=== PATIENT | male | born 1970 | race Caucasian/White ===

== ENCOUNTER 2020-05-23 11:53 | Day surgery (SDC) | payer BC, OTHER ==
[2020-05-18 09:31] LABS: BASOPHILS % (AUTO) 0.9 % (0-1); EOSINOPHILS # (AUTO) 0.2 X10'3 (0-0.9); EOSINOPHILS % (AUTO) 4.5 % (0-6); LYMPHOCYTES # (AUTO) 1.5 X10'3 (1.1-4.8); LYMPHOCYTES % (AUTO) 34.4 % (21-51); MEAN CORPUSCULAR HEMOGLOBIN 30.4 PG (27.0-31.0); MEAN CORPUSCULAR HGB CONC 33.6 g/dL (33.0-36.5); MEAN CORPUSCULAR VOLUME 90.4 FL (78-98); MEAN PLATELET VOLUME 8.2 FL (7.4-10.4); MONOCYTES # (AUTO) 0.4 X10'3 (0-0.9); MONOCYTES % (AUTO) 8.8 % (2-12); NEUTROPHILS # (AUTO) 2.2 X10'3 (1.8-7.7); NEUTROPHILS % (AUTO) 51.4 % (42-75); PRE OP HEMATOCRIT 41.3 % (42.0-52.0); PRE OP HEMOGLOBIN 13.9 g/dL (14.0-17.9); PRE OP PLATELET COUNT 226 X10'3 (140-440); RED BLOOD COUNT 4.57 X10'6 (4.70-6.10)
[2020-05-18 09:43] LABS: ALBUMIN/GLOBULIN RATIO 1.2 (1.1-1.5); ALKALINE PHOSPHATASE 57 IU/L (46-116); BLOOD UREA NITROGEN 18 MG/DL (7-18); BUN/CREATININE RATIO 17.3 (5.4-32.0); CALCIUM 9.2 MG/DL (8.5-10.1); CHLORIDE 107 MMOL/L (99-107); CREATININE 1.04 MG/DL (0.60-1.10); PRE OP ALT 35 U/L (30-65); PRE OP ANION GAP 7 (8-16); PRE OP AST 36 U/L (10-37); PRE OP BILIRUB, TOTAL 0.5 MG/DL (0.0-1.0); PRE OP GLUCOSE 109 MG/DL (70-104); PRE OP POTASSIUM 4.3 MMOL/L (3.4-5.1); PRE OP SODIUM 144 MMOL/L (135-145); TOTAL CARBON DIOXIDE 29.6 MMOL/L (24-32); TOTAL PROTEIN 7.4 G/DL (6.4-8.2); eGFR 75 ML/MIN
[2020-05-23] VITALS (18 sets, daily range): BP systolic 114–151; BP diastolic 61–89
[~2020-05-23] VITALS: Ht 182.9 cm; Wt 104.3 kg
[~2020-05-23 11:53] MED LIST: NO HOME MEDS; albuterol 2.5 MG/3 ML nebule NEB ONE; famotidine 20mg tablet PO ONE; ringers solution, lacted 1,000 ML IV SCH
[2020-05-23] MEDS ORDERED: vancomycin 1,500 MG in NS 300ml IV soln IV ONE (12:20)
[2020-05-23] MEDS ORDERED: ceFAZolin 2gm in dextrose, iso 50 ML IV ONE (12:20)
[2020-05-23] MEDS ORDERED: ROPIVAcaine 0.5% (5mg/ml) 30ml vial ONE (14:51)
[2020-05-23] MEDS ORDERED: ketorolac trometh. 30mg/ml inj. ONE (14:51)
[2020-05-23] MEDS ORDERED: fentaNYL/PF 50MCG/1 ML 2ML syringe ONE (15:08)
[2020-05-23] MEDS ORDERED: MIDAZolam 5mg/5ml vial ONE (15:09)
[2020-05-23] MEDS ORDERED: sevoflurane 250ml liquid IH ONE (15:12)
[2020-05-23] MEDS ORDERED: propofol inj 20 ML IV ONE (15:12)
[2020-05-23] MEDS ORDERED: tranexamic acid 1gm/0.7% sal. 100 ML IV ONE ×3 (15:15→20:35)
[2020-05-23] MEDS ORDERED: morphine 2 MG/ML inj. syringe IV PRN (16:00)
[2020-05-23] MEDS ORDERED: ROPIVAcaine 0.2% (10 MG/5 ML) BOLUS INJECTION INTERSCALE PRN (16:00)
[2020-05-23] MEDS ORDERED: proCHLORperazine 10 MG/2 ml inj IV PRN (16:00)
[2020-05-23] MEDS ORDERED: ROPIVAcaine 0.2%/PF PUMP/bolus 550 ML INTERSCALE SCH (16:00)
[2020-05-23] MEDS ORDERED: ondansetron/PF 4mg/2ml inj IV PRN ×3 (16:00→17:35)
[2020-05-23] MEDS ORDERED: meperidine/PF 25mg/ml syringe IV PRN ×2 (16:00)
[2020-05-23] MEDS ORDERED: ringers solution, lacted 1,000 ML IV SCH (16:00)
[2020-05-23] MEDS ORDERED: morphine 4 MG/ML inj SYRINge IV PRN (16:00)
[2020-05-23] MEDS ORDERED: bisacodyl 10mg suppository rectal RC PRN ×2 (17:35)
[2020-05-23] MEDS ORDERED: potassium cl 20mEq in 1/2 NS 1,000 ML IV SCH (17:35)
[2020-05-23] MEDS ORDERED: HYDROmorphone inj. 0.5 MG/0.5 ML DISP.SYRIN IV PRN ×2 (17:35)
[2020-05-23] MEDS ORDERED: magnesium hydroxide 30ml (MOM) UD suspension PO PRN ×2 (17:35)
[2020-05-23] MEDS ORDERED: oxyCODONE IR 5mg (immed. release) tablet PO PRN ×4 (17:35)
[2020-05-23] MEDS ORDERED: HYDROmorphone 1 mg/ml syringe IV PRN ×2 (17:35)
[2020-05-23] MEDS ORDERED: acetaminophen 325mg tablet PO PRN ×2 (17:35)
[2020-05-23] MEDS ORDERED: tranexamic acid inj. 0 MG in normal saline 100ml IV soln 100 ML IV ONE (17:35)
[2020-05-23] MEDS ORDERED: diphenhydrAMINE 25mg capsule PO PRN ×4 (17:35)
--- NOTE | 2020-05-23 17:54 | NUR ---
Received from OR via hospital bed, accompanied by Anesthesiologist Belkys and report given by Anesthesiolgist. Face mask at 10L. Dressing to left shoulder with splint and powder pack. PIV x2 to right AC and right hand. Denies pain. Spoke with , per pt request. She states patient chews constantly. SCD's present. dressing CDI. Addendum: 05/23/20 at 1820 by Amy Dougherty RN Amended: Links added.
[2020-05-23] MEDS: meperidine/PF 25mg/ml syringe IV PRN ×2 (18:25→18:46)
--- NOTE | 2020-05-23 19:14 | NUR ---
Patient transferred to room 346B. Report given August. Belongings sent with patient. Left arm in sling and immobilizer CDI. OnQ attached. Tingling left pointer and thumb, good pallor, cap refill less than 2 seconds, good radial pulse. LR at 100ml/hr.
[2020-05-23] MEDS ORDERED: vancomycin/NS 1 GM ADD-VANTAGE 250 ML IV SCH ×3 (20:00→23:50)
[2020-05-23] MEDS ORDERED: acetaminophen 325mg tablet PO SCH (20:00)
[2020-05-23] MEDS ORDERED: sennosides 8.6mg tablet PO SCH ×2 (21:00)
[2020-05-23] MEDS: acetaminophen 325mg tablet PO SCH (22:29)
[2020-05-23] MEDS: potassium cl 20mEq in 1/2 NS 1,000 ML IV SCH (23:13)
[2020-05-24] MEDS ORDERED: ceFAZolin/D5W- 1GM premix 50 ML IV SCH
[2020-05-24] MEDS: potassium cl 20mEq in 1/2 NS 1,000 ML IV SCH (01:35)
[2020-05-24] MEDS: ceFAZolin/D5W- 1GM premix 50 ML IV SCH ×2 (01:48→08:23)
[2020-05-24] MEDS: acetaminophen 325mg tablet PO SCH ×2 (03:00→08:24)
[2020-05-24 04:00] VITALS: BP 103/42
[2020-05-24 06:13] LABS: SODIUM 143 MMOL/L (135-145)
[2020-05-24 06:14] LABS: ANION GAP 6 (8-16); CHLORIDE 108 MMOL/L (99-107); POTASSIUM 3.8 MMOL/L (3.5-5.1); TOTAL CARBON DIOXIDE 28.8 MMOL/L (24-32)
[2020-05-24 06:19] LABS: BASOPHILS % (AUTO) 0.6 % (0-1); EOSINOPHILS # (AUTO) 0.1 X10'3 (0-0.9); EOSINOPHILS % (AUTO) 2.1 % (0-6); LYMPHOCYTES # (AUTO) 1.4 X10'3 (1.1-4.8); LYMPHOCYTES % (AUTO) 22.2 % (21-51); MEAN CORPUSCULAR HEMOGLOBIN 30.8 PG (27.0-31.0); MEAN CORPUSCULAR HGB CONC 34.2 g/dL (33.0-36.5); MEAN CORPUSCULAR VOLUME 90.1 FL (78-98); MEAN PLATELET VOLUME 8.3 FL (7.4-10.4); MONOCYTES # (AUTO) 0.6 X10'3 (0-0.9); MONOCYTES % (AUTO) 9.3 % (2-12); NEUTROPHILS # (AUTO) 4.2 X10'3 (1.8-7.7); NEUTROPHILS % (AUTO) 65.8 % (42-75); PLATELET COUNT 177 X10'3 (140-440); RED BLOOD COUNT 3.56 X10'6 (4.70-6.10); WHITE BLOOD COUNT 6.4 X10'3 (4.5-11.0)
[2020-05-24 07:37] VITALS: BP 116/63
[2020-05-24] MEDS ORDERED: aspirin 325mg tablet PO SCH (08:30)
[2020-05-24 11:00] VITALS: BP 121/67
--- NOTE | 2020-05-24 14:20 | NUR ---
Patient IV discontinued, tolerated well. Wheeled down to be picked up by .
[2020-05-25] MEDS ORDERED: acetaminophen 325mg tablet PO PRN ×2 (17:35)
== END 2020-05-24 13:03 | disposition home or self-care (01) ==
LOC: PAS 11:53 → SUR 3N 17:33 → UNDOADMIN 17:33 → PAS 05-24 13:03
PROVIDERS: ATTEND Orthopaedic Surgery
DX: M19.012 Primary osteoarthritis, left shoulder (principal); M25.512 Pain in left shoulder; M75.22 Bicipital tendinitis, left shoulder; M75.42 Impingement syndrome of left shoulder; Z20.828 Contact with and (suspected) exposure to other viral communicable diseases; Z79.899 Other long term (current) drug therapy; Z72.89 Other problems related to lifestyle
CPT/HCPCS: 23430; 23472; 36415; 64416; 76937; 80051; 80053; 82948; 85025; 87635; C1713; C1776; J0690; J1885; J2175; J2250; J2704; J2795; J3010; J3370; J7040; J7120; A4565; A4618; A7000; G0378; J3480